=== PATIENT | female | born 1995 | race Two or more races ===

== ENCOUNTER → 2024-03-07 | Emergency (ER) | payer OTHER ==
[~2024-03-07] VITALS: Ht 165.1 cm; Wt 90.7 kg
[~2024-03-07] MED LIST: FOLIC ACID0.8 M1; PRENATA CHEWAB1 EACH
== END | disposition left against medical advice (07) ==
LOC: ER 17:08
DX: Z53.21 Procedure and treatment not carried out due to patient leaving prior to being seen by health care provider (principal)

== ENCOUNTER 2024-07-14 13:47 | Outpatient (CLI) | payer OTHER | END 2024-07-14 13:48 | disposition home or self-care (01) | LOC: PRENATAL 13:47 | PROVIDERS: ATTEND Obstetrics & Gynecology Maternal & Fetal Medicine | DX: O26.849 Uterine size-date discrepancy, unspecified trimester (principal); O36.8199 Decreased fetal movements, unspecified trimester, other fetus; O34.219 Maternal care for unspecified type scar from previous cesarean delivery; O24.419 Gestational diabetes mellitus in pregnancy, unspecified control; O40.1XX0 Polyhydramnios, first trimester, not applicable or unspecified; Z3A.36 36 weeks gestation of pregnancy ==

== ENCOUNTER 2024-07-25 22:50 | Inpatient (IN) | payer OTHER ==
[~2024-07-25] VITALS: Ht 165.1 cm; Wt 3.6 kg
[2024-07-25 22:57] VITALS: BP 111/62
[2024-07-25] MEDS ORDERED: SODIUM CHLORIDE 0.45 % 1,000 ML IV SCH (23:45)
[2024-07-26 00:20] LABS: HEMATOCRIT 35.5 % (36.0-45.00); MEAN CELL VOLUME 86.7 fL (80.00-100.00); MEAN CORPUSCULAR HEMOGLOBIN 29.2 pg (27.00-32.0); MEAN CORPUSCULAR HGB CONC 33.7 g/dl (32.0-36.0); PLATELET COUNT 180 K/uL (150-450); RED BLOOD COUNT 4.09 M/uL (4.00-6.00); RED CELL DISTRIBUTION WIDTH 15.3 % (11.5-14.5)
[2024-07-26 00:24] LABS: PH,URINE 6.5 (5.0-8.0); URINE APPEARANCE Cloudy; URINE BILIRRUBIN Negative (NEGATIVE); URINE BLOOD Negative; URINE COLOR Yellow; URINE GLUCOSE Negative (NEGATIVE); URINE KETONE Negative (NEGATIVE); URINE LEUKOCYTE Large; URINE NITRATE Negative; URINE PROTEIN Negative (NEGATIVE); URINE UROBILINOGEN 0.2 E.U./dl
[2024-07-26 00:28] LABS: URINE BACTERIA 3958.8 uL (0.0-1933); URINE EPITHELIAL CELLS 99.7 uL (0.0-38.8); URINE WBC 329.1 uL (0.0-23.2)
[2024-07-26 00:38] LABS: INR 0.96; PARTIAL THROMBOPLASTIN TIME 27.6 SECONDS (22.0-34.0); PROTHROMBIN TIME 10.5 SECONDS (9.0-11.5)
[2024-07-26 00:40] LABS: ALBUMIN 2.7 gm/dL (3.4-5.0); BILIRUBIN TOTAL 0.17 mg/dL (0.3-1.2); CALCIUM 9.6 mg/dL (8.5-10.1); CREATININE SERUM 0.54 mg/dL (0.55-1.02); GFR 132.56; GLOBULINA 3.2 G/DL (2.4-3.5); POTASSIUM 4.07 mEq/L (3.5-5.1); TOTAL PROTEIN 5.9 gm/dL (6.4-8.2)
[2024-07-26 03:22] VITALS: BP 118/79
[2024-07-26 07:27] VITALS: BP 116/82
[2024-07-26] MEDS ORDERED: CEFAZOLIN SODIUM 1,000 MG VIAL IV SCH (08:00)
[2024-07-26 11:57] VITALS: BP 119/80
[2024-07-26 15:52] VITALS: BP 129/81
[2024-07-26 20:12] VITALS: BP 114/78
[2024-07-26] MEDS ORDERED: OXYTOCIN 10 UNITS/ML VIAL IV ONE (22:00)
[2024-07-26] MEDS ORDERED: ERYTHROMYCIN BASE OPHT 1GM EACH TUBE OP ONE (22:00)
[2024-07-26] MEDS ORDERED: CHLORHEXIDINE GLUCONATE 120 ML BOTTLE TOP ONE (22:00)
[2024-07-26] MEDS ORDERED: KETOROLAC TROMETHAMINE 60 MG VIAL IM STA (22:49)
[2024-07-26] MEDS ORDERED: RINGERS SOLUTION,LACTATED 1,000 ML IV SCH (23:00)
[2024-07-26] MEDS ORDERED: PROMETHAZINE HCL 25 MG/ML AMPUL IM PRN (23:00)
[2024-07-26] MEDS ORDERED: OXYTOCIN 1,000 ML IV SCH (23:00)
[2024-07-26] MEDS ORDERED: MEPERIDINE HCL/PF 50 MG/ML VIAL IM PRN (23:00)
[2024-07-27 01:53] VITALS: BP 139/78
[2024-07-27 06:28] LABS: HEMATOCRIT 40.1 % (36.0-45.00); HEMOGLOBIN 13.5 g/dL (12.0-15.00); MEAN CELL VOLUME 87.7 fL (80.00-100.00); MEAN CORPUSCULAR HEMOGLOBIN 29.5 pg (27.00-32.0); MEAN CORPUSCULAR HGB CONC 33.6 g/dl (32.0-36.0); PLATELET COUNT 167 K/uL (150-450); RED BLOOD COUNT 4.58 M/uL (4.00-6.00); RED CELL DISTRIBUTION WIDTH 14.9 % (11.5-14.5)
[2024-07-27 08:08] VITALS: BP 142/75
[2024-07-27] MEDS ORDERED: OxyCODONE HCL/APAP UD (PERCOCET) PO PRN (09:00)
[2024-07-27] MEDS ORDERED: IBUprofen 600 MG TABLET PO PRN (15:00)
[2024-07-27 16:42] VITALS: BP 129/94
[2024-07-28 01:48] VITALS: BP 139/80
[2024-07-28 08:49] VITALS: BP 132/86
[2024-07-28 17:19] VITALS: BP 133/82
[2024-07-29 00:17] VITALS: BP 134/87
[2024-07-29] MEDS ORDERED: IBUPROFEN800 MG PO (08:59)
[2024-07-29 13:59] VITALS: BP 127/85
== END 2024-07-29 18:59 | disposition home or self-care (01) | DRG 785 ==
LOC: OBS/DEL 22:50 → LDR 07-26 14:22 → OB/GYN 07-26 14:22 → OBS/DEL 07-26 14:22 → OB/GYN 07-26 23:56
PROVIDERS: ADMIT Obstetrics & Gynecology; ATTEND Obstetrics & Gynecology
PROC: 0UB70ZZ Excision of Bilateral Fallopian Tubes, Open Approach (ICD-10-PCS; 2024-07-26)
PROC: 4A1HXCZ Monitoring of Products of Conception, Cardiac Rate, External Approach (ICD-10-PCS; 2024-07-26)
PROC: BY4FZZZ Ultrasonography of Third Trimester, Single Fetus (ICD-10-PCS; 2024-07-26)
PROC: 10D00Z1 Extraction of Products of Conception, Low, Open Approach (ICD-10-PCS; principal; 2024-07-26 20:30)
DX: O13.4 Gestational [pregnancy-induced] hypertension without significant proteinuria, complicating childbirth (principal); O36.8130 Decreased fetal movements, third trimester, not applicable or unspecified; O40.3XX0 Polyhydramnios, third trimester, not applicable or unspecified; O34.211 Maternal care for low transverse scar from previous cesarean delivery; Z30.2 Encounter for sterilization; Z3A.37 37 weeks gestation of pregnancy; Z37.0 Single live birth; Z20.822 Contact with and (suspected) exposure to COVID-19